=== PATIENT | female | born 1955 | race Hispanic/Latino ===

== ENCOUNTER 2021-04-24 09:09 | Day surgery (SDC) | payer MEDICARE ==
[~2021-04-24 09:09] MED LIST: CELEBREX200 M1 PO; COZAAR100 MG PO; CYCLOBENZAPR10 MG; ESTRACE0.5 MG PO; ESTRADIOL0.05 MG/24; FOSAMAX PLUS PO; HYDROCO/APAP1 TAB; HYDROXYCHLOR200 M1 PO; HYZAAR1 TA1 PO; LIPITOR20 M1 PO; METHYLPRED4 M2; VITAMIN D320 MCG PO
[2021-04-24 13:43] VITALS: BP 129/81
== END 2021-04-24 11:37 | disposition home or self-care (01) ==
LOC: ENDO 09:09
PROVIDERS: ATTEND Surgery
PROC: 0DJD8ZZ Inspection of Lower Intestinal Tract, Via Natural or Artificial Opening Endoscopic (ICD-10-PCS; principal; 2021-04-24)
DX: Z12.11 Encounter for screening for malignant neoplasm of colon (principal); K64.8 Other hemorrhoids; I10 Essential (primary) hypertension; M06.9 Rheumatoid arthritis, unspecified